=== PATIENT | male | born 1960 | race Caucasian/White ===

== ENCOUNTER 2019-06-20 11:59 | Outpatient (CLI) | payer MEDICARE ==
[2019-06-20 12:35] LABS: MEAN CORPUSCULAR VOLUME 84.1 fL (80.0-94.0); MONOCYTES # (AUTO) 0.8 10^3/uL (0.0-1.0)
[2019-06-20 12:44] LABS: BASOPHILS # (AUTO) 0.1 10^3/uL (0.0-0.1); BASOPHILS % (AUTO) 0.6 %; EOSINOPHILS # (AUTO) 0.2 10^3/uL (0.0-0.7); EOSINOPHILS % (AUTO) 1.8 %; HGB - HEMOGLOBIN 15.2 g/dL (14.0-18.0); LYMPHOCYTES # (AUTO) 2.8 10^3/uL (1.5-3.5); LYMPHOCYTES % (AUTO) 29.3 %; MEAN CORPUSCULAR HEMOGLOBIN 27.1 pg (27.0-31.0); MEAN CORPUSCULAR HGB CONC 32.2 g/dL (32.0-36.0); MEAN PLATELET VOLUME 9.8 fL (7.4-11.4); MONOCYTES % (AUTO) 7.9 %; NEUTROPHILS # (AUTO) 5.6 10^3/uL (1.5-6.6); NEUTROPHILS % (AUTO) 59.8 %; PLT - PLATELET COUNT 409 10^3/uL (130-450); RED BLOOD COUNT 5.61 10^6/uL (4.70-6.10); WHITE BLOOD COUNT 9.5 x10^3/uL (4.8-10.8)
[2019-06-20 13:09] LABS: ALBUMIN 4.9 g/dL (3.2-5.5); ALBUMIN/GLOBULIN RATIO 1.2 (1.0-2.2); ALKALINE PHOSPHATASE 48 IU/L (42-121); ALT ALANINE AMINOTRANSFERASE 24 IU/L (10-60); AST ASPARTATE AMINOTRANSFERASE 22 IU/L (10-42); BUN - BLOOD UREA NITROGEN 19 mg/dL (6-20); CALCIUM 9.3 mg/dL (8.5-10.3); CARBON DIOXIDE - CO2 23 mmol/L (21-32); CHLORIDE 95 mmol/L (101-111); CHOL/HDL RATIO 3.6 (<5.0); CHOLESTEROL 177 mg/dL; CREATININE 0.8 mg/dL (0.6-1.2); GFR - MDRD 100 (>89); GLUCOSE 147 mg/dL (70-100); HDL CHOLESTEROL 49 mg/dL; LDL CHOLESTEROL,CALCULATED 93 mg/dL; LDL/HDL RATIO 1.9 (<3.6); SODIUM 130 mmol/L (135-145); VLDL CHOLESTEROL 35 mg/dL
--- NOTE | 2019-06-21 07:58 | XRAY Report ---
Reason: KNEE PAIN,LEFT Procedure Date: 06/20/2019 Accession Number: [id number] / [id number] Procedure: XR - Knee 3 View LT CPT Code: Final Report FULL RESULT: EXAM: LEFT KNEE RADIOGRAPHY EXAM DATE: 06/20/2019 01:09 PM. CLINICAL HISTORY: Left knee pain. COMPARISON: None. TECHNIQUE: 3 views. FINDINGS: Bones: Moderate osteophytic spurring of the dorsum of the patella, the medial and lateral tibial plateaus, and the femoral condyles. No fractures or bone lesions. Joints: Moderate to severe narrowing of the medial compartment of the knee. Moderate narrowing of the patellofemoral articulation. Trace suprapatellar joint effusion. Soft Tissues: Normal. No soft tissue swelling. IMPRESSION: Moderate to severe degenerative changes at the knee. RADIA
== END 2019-06-20 12:00 | disposition home or self-care (01) ==
LOC: LAB 11:59 → DI 12:00
PROVIDERS: ATTEND Physician Assistant Medical
DX: M17.12 Unilateral primary osteoarthritis, left knee (principal); I10 Essential (primary) hypertension; N52.9 Male erectile dysfunction, unspecified
CPT/HCPCS: 36415; 73562; 80053; 80061; 84443; 85025; G0103; 83721; 84153

== ENCOUNTER 2020-06-06 14:42 | Outpatient (CLI) | payer MEDICARE ==
--- NOTE | 2020-06-06 15:38 | CT Report ---
PROCEDURE: Sinuses INDICATIONS: CHRONIC PANSINUSITIS TECHNIQUE: Noncontrast 3.0 mm axial images acquired from the frontal sinuses to the mid-sella, with coronal and sagittal reformats. For radiation dose reduction, the following was used: automated exposure control , adjustment of mA and/or kV according to patient size. COMPARISON: None. FINDINGS: Image quality: Excellent. Maxillary Sinuses: No bony remodeling or destruction. Minimal mucosal thickening is seen within the inferior maxillary sinuses. Ethmoid Air Cells: No bony remodeling or destruction. Mild to moderate mucosal thickening is seen wi thin the ethmoid air cells. Sphenoid Sinuses: No bony remodeling or destruction. Sinuses are clear. Frontal Sinuses: No bony remodeling or destruction. There is moderate left-sided and mild right-side d mucosal thickening seen. Ostiomeatal Complexes: Ostiomeatal complexes are patent, yet they are constitutionally narrowed. No Juliet cells. Miscellaneous: Visualized intra-orbital contents are normal. No sandra bullosa. No nasal septal de viation. IMPRESSION: Widespread paranasal sinus disease, which is overall most prominent involving the left frontal sinus. The ostiomeatal complexes are patent, yet they are constitutionally narrowed. Reviewed by: Tk Nolasco MD on 06/06/2020 2:37 PM [facility] Approved by: Tk Nolasco MD on 06/06/2020 2:37 PM [facility] Station ID: [id number]
== END 2020-06-06 14:43 | disposition home or self-care (01) ==
LOC: DI 14:42
PROVIDERS: ATTEND Otolaryngology
DX: J32.4 Chronic pansinusitis (principal)
CPT/HCPCS: 70486